=== PATIENT | male | born 1975 | race Caucasian/White ===

== ENCOUNTER 2017-02-13 23:48 | Emergency (ER) | payer SELFPAY ==
[2017-02-14] MEDS ORDERED: NORMAL SALINE 1000 ML 1,000 ML IV ONE (00:17)
[2017-02-14] MEDS ORDERED: KETOROLAC TROMETHAMINE INJ/PF 30 MG/1 ML SDV IV ONE (00:17)
--- NOTE | 2017-02-14 00:44 | ER Document Report ---
ED General - General Chief Complaint: Flank Pain Stated Complaint: RT SIDE BACK PAIN Time Seen by Provider: 02/14/17 00:16 Notes: Patient is a 41-year-old male with past medical history of uncomplicated kidney stones, active tobacco use who presents with 5 days of cough, nasal congestion and sore throat. Initially developed a fever today. States that he did have an episode 3 days ago where he "felt like some being dropped out of my right kidney like when I had kidney stones in the past". He does however deny that the pain feels anything like when he had kidney stones in the past. He denies any active flank pain at this time. Nothing improves or worsens his symptoms. They have been unchanged since onset. He has not seen a primary care doctor regarding today's concerns. He is uncertain if he has had any similar episodes in the past. He denies any vomiting, diarrhea, focal abdominal pain, headache, neck pain or rash. No tick exposures. TRAVEL OUTSIDE OF THE [place] IN LAST 30 DAYS: No - Related Data Allergies/Adverse Reactions: No Known Allergies Allergy (Unverified 02/13/17 23:56) Past Medical History - General Information source: Patient - Social History Smoking Status: Current Every Day Smoker Frequency of alcohol use: None Drug Abuse: None Lives with: Spouse/Significant other Family History: Arthritis, CAD, DM, Hyperlipidemia, Hypertension, Malignancy Patient has suicidal ideation: No Patient has homicidal ideation: No Renal/ Medical History: Denies: Hx Peritoneal Dialysis Musculoskeltal Medical History: Reports Hx Arthritis, Reports Hx Musculoskeletal Deformity, Reports Hx Musculoskeletal Trauma Review of Systems - Review of Systems Notes: Constitutional: Positive for fever. HENT: Negative for sore throat. And nasal congestion Eyes: Negative for visual changes. Cardiovascular: Negative for chest pain. Respiratory: Negative for shortness of breath. Gastrointestinal: Negative for abdominal pain, vomiting or diarrhea. Positive sore throat sore throat and congestion Genitourinary: Negative for dysuria. Musculoskeletal: Negative for back pain. Skin: Negative for rash. Neurological: Negative for headaches, weakness or numbness. 10 point ROS negative except as marked above and in HPI. Physical Exam - Vital signs Vitals: Pulse Resp BP Pulse Ox 112 H 20 153/105 H 98 02/13/17 23:51 02/13/17 23:51 02/13/17 23:51 02/13/17 23:51 Interpretation: Tachycardic Notes: PHYSICAL EXAMINATION: GENERAL: Well-appearing, well-nourished and in no acute distress. HEAD: Atraumatic, normocephalic. EYES: Pupils equal round and reactive to light, extraocular movements intact, sclera anicteric, conjunctiva are normal. ENT: nares patent, oropharynx clear without exudates. Moderately dry mucous membranes. NECK: Normal range of motion, supple without lymphadenopathy LUNGS: Breath sounds clear to auscultation bilaterally and equal. No wheezes rales or rhonchi. HEART: Regular tachycardia without murmurs ABDOMEN: Soft, nontender, normoactive bowel sounds. No guarding, no rebound. No masses appreciated. No CVA tenderness EXTREMITIES: Normal range of motion, no pitting or edema. No cyanosis. NEUROLOGICAL: No focal neurological deficits. Moves all extremities spontaneously and on command. PSYCH: Normal mood, normal affect. SKIN: Warm, Dry, normal turgor, no rashes or lesions noted. Course - Re-evaluation Re-evalutation: 02/14/17 00:43 Patient presents with 3 days of mild right flank pain, fever and cough. He has a history of uncomplicated kidney stones but no history of infected stones or stones requiring surgery in the past. He is overall well in appearance and in no acute distress. Initial vitals do show both fever and tachycardia. He does also appear somewhat dehydrated on examination. Abdominal exam is completely benign without any focal tenderness. His clinical history exam is not consistent with an acute appendicitis, cholangitis, bowel perforation or mesenteric ischemia. Will obtain labs, chest x-ray, and reassess. If urinalysis demonstrates findings concerning for possible infected kidney stone will proceed with CT abdomen pelvis. 02/14/17 02:47 Labs including urinalysis are all unremarkable. Chest x-ray is clear. His vitals have normalized. I do not have a source for his fever at this time and I have expressed this to the patient. Although given his history of sinusitis, a cough, and upper respiratory symptoms it may be due to a viral etiology. I do not see any indication for further labs or imaging at this time. Cultures have been obtained. I do not see a source to start antibiotics at this time. I have requested the patient follow-up with his primary care doctor within the next 24 hours and return to the month department immediately if he has any worsening of his symptoms. - Vital Signs Vital signs: Temp Pulse Resp BP Pulse Ox 100.5 F H 91 18 138/88 H 97 02/14/17 03:55 02/14/17 03:55 02/14/17 03:55 02/14/17 03:55 02/14/17 03:55 - Laboratory Result Diagrams: 02/14/17 00:35 02/14/17 00:35 Laboratory results interpreted by me: 02/14/17 02/14/17 02/14/17 00:35 00:35 01:14 Lymphocytes % 12.3 L Glucose 124 H Urine Urobilinogen 2.0 H - Diagnostic Test Radiology reviewed: Image reviewed, Reports reviewed Radiology results interpreted by me: 02/14/17 06:06 Chest x-ray: No acute infiltrate or pneumothorax Discharge - Discharge Clinical Impression: Fever of unknown origin, Cough Condition: Good Disposition: HOME, SELF-CARE Additional Instructions: The exact source of your fever is uncertain today. However your labs, chest x- ray, and urine are all normal. Please return immediately if you develop any worsening of your symptoms, shortness of breath, severe headache, neck pain, confusion or any other symptoms that are worrisome to you.
[2017-02-14 00:53] LABS: ABSOLUTE LYMPHOCYTES (AUTO) 0.8 10^3/uL (0.5-4.7); ABSOLUTE MONOCYTES (AUTO) 0.7 10^3/uL (0.1-1.4); ABSOLUTE NEUT (AUTO) 5.4 10^3/uL (1.7-8.2); BASOPHILS % (AUTO) 0.2 % (0-2); EOSINOPHILS % (AUTO) 0.3 % (0-6); HEMATOCRIT 41.3 % (37.9-51.0); HEMOGLOBIN 14.7 g/dL (13.5-17.0); HGB HCT DIFFERENCE 2.8; LYMPHOCYTES % (AUTO) 12.3 % (13-45); MEAN CORPUSCULAR HEMOGLOBIN 31.5 pg (27.0-33.4); MEAN CORPUSCULAR HGB CONC 35.7 g/dL (32.0-36.0); MEAN CORPUSCULAR VOLUME 88 fl (80-97); MONOCYTES % (AUTO) 9.7 % (3-13); RED BLOOD COUNT 4.68 10^6/uL (4.35-5.55); RED CELL DISTRIBUTION WIDTH 12.6 % (11.5-14.0); SEGMENTED NEUTROPHILS % (AUTO) 77.5 % (42-78); WHITE BLOOD COUNT 6.9 10^3/uL (4.0-10.5)
[2017-02-14 01:04] LABS: ANION GAP 12 (5-19); BLOOD UREA NITROGEN 16 mg/dL (7-20); CALCIUM 9.2 mg/dL (8.4-10.2); CARBON DIOXIDE 25 mmol/L (22-30); CHLORIDE 105 mmol/L (98-107); CREATININE RESULT 0.95 mg/dL (0.52-1.25); GLUCOSE 124 mg/dL (75-110); SODIUM 141.7 mmol/L (137-145)
--- NOTE | 2017-02-14 02:02 | RADIOLOGY REPORT (SQ) ---
EXAM DESCRIPTION: CHEST PA/LAT COMPLETED DATE/TIME: 02/14/2017 1:38 am REASON FOR STUDY: fever, cough COMPARISON: None. EXAM PARAMETERS: NUMBER OF VIEWS: two views TECHNIQUE: Digital Frontal and Lateral radiographic views of the chest acquired. RADIATION DOSE: NA LIMITATIONS: none FINDINGS: LUNGS AND PLEURA: No consolidation, pneumothorax or pleural effusion. MEDIASTINUM AND HILAR STRUCTURES: No masses or contour abnormalities. HEART AND VASCULAR STRUCTURES: Heart normal size. No evidence for failure. BONES: No acute findings. HARDWARE: None in the chest. IMPRESSION: No acute radiographic finding in the chest. TECHNICAL DOCUMENTATION: JOB ID: [id number] [employer]- All Rights Reserved
[2017-02-14 02:12] LABS: APPEARANCE,URINE CLEAR; BILIRUBIN,URINE NEGATIVE (NEGATIVE); GLUCOSE, URINE NEGATIVE (NEGATIVE); KETONES,URINE NEGATIVE (NEGATIVE); LEUKOCYTE ESTERASE,URINE NEGATIVE (NEGATIVE); NITRITE,URINE NEGATIVE (NEGATIVE); PROTEIN,URINE NEGATIVE (NEGATIVE)
[2017-02-14 05:20] VITALS: BP 138/88
== END 2017-02-14 03:55 | disposition home or self-care (01) ==
LOC: ER 23:48
DX: R05 Cough (principal); R09.81 Nasal congestion; J02.9 Acute pharyngitis, unspecified; R50.9 Fever, unspecified; R00.0 Tachycardia, unspecified; F17.200 Nicotine dependence, unspecified, uncomplicated; Z87.442 Personal history of urinary calculi
CPT/HCPCS: 99284; 96361; 96374; 36415; 87040; 87086; 85025; 80048; 81001; 71020; J1885; J7030